=== PATIENT | male | born 1970 | race Caucasian/White ===

== ENCOUNTER 2019-04-12 12:56 | Observation (INO) | payer SELFPAY ==
[2019-04-12] VITALS (13 sets, daily range): BP systolic 125–161; BP diastolic 88–97; PULSE 63–126; RESP 15–20; TEMP 36.8–37.8; O2SAT 95–100; BMI 22.4
--- NOTE | 2019-04-12 13:28 | ED_ITS ---
Documented by User: DAMASO Wallace 04/12/19 15:54 HPI - Abdominal Pain General: Chief Complaint: Abdominal Pain Stated Complaint: Flank pain, vomiting, dark urine Time Seen by Provider: 04/12/19 13:28 History of Present Illness: HPI narrative: Patient is a 48-year-old male who comes to the ED with left flank pain, nausea and vomiting. Patient states that the left flank pain started about 3 days ago. Around that time patient also noticed that his urine got dark in tea colored. He says that the dark tea color urine has resolved in the past couple days but he still has left flank pain. He's had nausea past couple days and has not eaten much at all. Loss of appetite for the past 3 days. He vomited once this morning. He says he has a little bit of discomfort when he urinates. He also says he's had diarrhea for the past couple days. He has been able to drink fluids and keep them down. Associated Symptoms: Reports diarrhea, nausea and vomiting; Denies chills, constipation, dysuria, fever(s), hematochezia and hematuria Review of Systems Const: Denies: fever, chills or fatigue Eyes: Denies: change in vision or eye discomfort ENMT: Denies: throat pain, painful swallowing, ear pain, nasal discharge or nasal congestion Card: Denies: chest pain, palpitations, edema, swelling of feet/ankles, shortness of breath on exertion or shortness of breath when lying down Resp: Reports: shortness of breath (from pain) and non-productive cough; Denies: productive cough GI: Reports: nausea, vomiting and diarrhea; Denies: abdominal pain, constipation or blood in stool : Reports: flank pain; Denies: difficulty urinating, painful urination or blood in urine Musc: Denies: neck pain, back pain or extremity swelling Skin/Breast: Denies: rash or new lesion Neuro: Denies: headache, numbness in extremities or weakness in extremities PFS ED PFSH: Medical History Tibial plateau fracture, left Surgical History S/P ureteral stent placement Social History Smoking and tobacco status: current every day smoker Substance/Drug Use: current Substance/Drug use frequency: few times a week Substance/Drug use type: Marijuana Physical Exam Narrative: EXAM NARRATIVE: Patient is a 48-year-old male with no signs of acute distress or pain. Patient is also showing no signs of acute respiratory distress. Const: COMMON NORMALS: oriented x3 HENMT: COMMON NORMALS: normocephalic HEAD & SCALP: normocephalic MOUTH: oral and palatal mucosa normal THROAT: posterior oropharynx normal and uvula midline Neck/C-Spine: COMMON NORMALS: supple GENERAL: Yes normal visual inspection Resp: COMMON NORMALS: normal respiratory effort, no retractions, no use of accessory muscles and clear to auscultation bilaterally AUSCULTATION: clear to auscultation bilaterally Cardio: COMMON NORMALS: regular rate, regular rhythm, S1 normal heart sound, S2 normal heart sound, no gallops, no clicks, no murmurs and peripheral pulses 2+ throughout RATE: regular rate RHYTHM: regular rhythm HEART SOUNDS: S1 normal and S2 normal PERIPHERAL PULSES: pulses 2+ throughout GI: COMMON NORMALS: normal to inspection, nondistended, normoactive bowel sounds, soft to palpation and no masses PALPATION: Yes soft and Yes tender Details: other (Left flank) : COMMON NORMALS: Yes no CVA tenderness BLADDER/KIDNEY EXAM: Yes no CVA tenderness Back/Pelvis: COMMON NORMALS: no CVA tenderness Extremity: COMMON NORMALS: normal to inspection Neuro: COMMON NORMALS: oriented x3 GAIT: Yes normal gait Skin: GENERAL SKIN EXAM: dry skin Course ED course: I talked with Dr. Wilson about patient's case and the CT results showing acute appendicitis. Dr. Wilson will be calling Gen. Surgery and managing patient's admission. Vital Signs: Vital signs: Vital Signs Temperature 98.9 F 04/13/19 07:23 Pulse Rate 65 04/13/19 07:23 Respiratory Rate 18 04/13/19 07:23 Blood Pressure 145/76 04/13/19 07:23 Pulse Oximetry 94 04/13/19 07:23 MDM - Abdominal Pain Lab Data: Attestation: I reviewed the patient's lab results. Labs: Lab Results 04/12/19 04/12/19 04/12/19 Range/Units 13:30 14:13 14:13 WBC 8.3 (4.0-10.0) 10^3/ uL RBC 5.78 H (4.1-5.3) 10^6/u L Hgb 16.9 H (11.7-16.6) g/dL Hct 51.4 (42.0-52.0) % MCV 88.9 (80-94) fL MCH 29.2 (28.0-34.0) pg MCHC 32.9 (30.0-36.0) g/dL RDW 14.6 (12.1-15.1) % Plt Count 223 (130-400) 10^3/c mm MPV 10.1 (7.4-10.4) fL Neut % (Auto) 76.4 % Lymph % (Auto) 12.3 % [place] % (Auto) 10.5 % Eos % (Auto) 0.0 % Baso % (Auto) 0.4 % Neut # (Auto) 6.4 (1.8-7.7) 10^3/u L Lymph # (Auto) 1.0 (0.8-4.8) 10^3/u L [place] # (Auto) 0.9 (0.2-0.9) 10^3/u L Eos # (Auto) 0.0 (0.0-0.8) 10^3/u L Baso # (Auto) 0.0 (0.0-0.1) 10^3/u L Nucleated RBC % (a uto) 0 % Nucleated RBCs # 0.0 /100WBC Sodium 137 (136-145) mmol/L Potassium 4.5 (3.5-5.1) mmol/L Chloride 97 L (98-107) mmol/L Carbon Dioxide 26 (22-29) mmol/L Anion Gap 18.5 (5-19) BUN 27 H (6-20) mg/dL Creatinine 1.1 (0.7-1.2) mg/dL GFR Calculation 71.1 L (90-130) mL/min Glucose 102 (65-115) mg/dL Calcium 9.2 (8.5-10.5) mg/dL Total Bilirubin 0.2 (0.15-1.2) mg/dL AST 26 (0-40) U/L ALT 21 (0-41) U/L Alkaline Phosphata se 52 (40-130) IU/L Total Protein 7.7 (6.6-8.7) g/dL Albumin 4.2 (3.5-5.2) g/dL Globulin 3.5 (1.3-4.6) g/dL Urine Color Yellow (Yellow) Urine Appearance Hazy A (CLEAR) Urine pH 5 (5-7) Ur Specific Gravit y 1.025 (1.005-1.030) Urine Protein 1+ H (Negative) Urine Glucose (UA) Norm (Normal) Urine Ketones 1+ H (Negative) Urine Occult Blood 3+ H (Negative) Urine Nitrate Negative (Negative) Urine Bilirubin Neg (NEGATIVE) Urine Urobilinogen Norm (Negative) mg/dL Ur Leukocyte Maisha ase Negative (Negative) Urine RBC 25-40 H (0-2) /hpf Urine WBC 0-4 H (0-5) /hpf Ur Squamous Epith Cells Rare (0-5) Urine Bacteria 1+ H (NONE) Fine Granular Cast s 10-15 H /lpf Urine Mucus 1+ Imaging Data ^: CT Abd/Pel: Attestation: I personally reviewed and interpreted this imaging study as follows: Radiologist's impression: [place] [address] CT Scan Report Signed Patient: Beto Thakkar Unit #: [id number] : 1970 Age/Sex: 48 / M ADM Date: 04/12/19 Loc: ER Room/Bed: Attending Dr: Ordering Provider/Ordering MD: Saeed Austin Date of Service: 04/12/19 Procedure(s): CT abdomen pelvis w con* [id number] Accession Number(s): [id number] Report Number: [id number] PROCEDURE INFORMATION: Exam: CT Abdomen And Pelvis With Contrast Exam date and time: 04/12/2019 2:09 PM Age: 48 years old Clinical indication: Abdominal pain; Flank; Other: Bilateral; Additional info: Right flank pain and nausea TECHNIQUE: Imaging protocol: Computed tomography of the abdomen and pelvis with intravenous contrast. Total DLP: 528.66 mGy-cm Radiation optimization: All CT scans at this facility use at least one of these dose optimization techniques: automated exposure control; mA and/or kV adjustment per patient size (includes targeted exams where dose is matched to clinical indication); or iterative reconstruction. Contrast material: OMNIPAQUE 300; Contrast volume: 95 ml; Contrast route: IV; COMPARISON: No relevant prior studies available. FINDINGS: Liver: Normal. No mass. Gallbladder and bile ducts: Normal. No calcified stones. No ductal dilation. Pancreas: Normal. No ductal dilation. Spleen: Normal. No splenomegaly. Adrenals: Normal. No mass. Kidneys and ureters: There is calcification in the inferior left kidney. There is left hydro nephrosis of uncertain age. No obstructing ureteral mass or calcification. No hydronephrosis on the right. Stomach and bowel: Unremarkable. No obstruction. No mucosal thickening. Appendix: The appendix diameter is 0.7 cm. There is enhancement of the appendix wall. Intraperitoneal space: Unremarkable. No free air. No significant fluid collection. Vasculature: Unremarkable. No abdominal aortic aneurysm. Lymph nodes: Unremarkable. No enlarged lymph nodes. Bladder: Unremarkable as visualized. Reproductive: Unremarkable as visualized. Bones/joints: Unremarkable. No acute fracture. Soft tissues: Unremarkable. CT/CT abdomen pelvis w con* [id number] IMPRESSION: Findings are consistent with acute appendicitis. There is left hydronephrosis which may be old.Clinical correlation is advised. THIS REPORT CONTAINS FINDINGS THAT MAY BE CRITICAL TO PATIENT CARE. The findings were verbally communicated via telephone conference with Saeed Austin at 3:27 PM WELLNESS SPA MANAGER on 04/12/2019. The findings were acknowledged and understood. Radiation Dose CTDIVOL = (mGy): DLP = 528.66 (mGy-cm) Dictated By: Rona Mata MD Signed By: Rona Mata MD Signed Date/Time: 04/12/19 1529 DD/ 1528 Discharge Plan Discharge Patient Disposition: Admitted As Inpatient Admit Provider: Javon Olmstead Clinical Impression: Acute appendicitis Condition: Stable Discharge Orders: Discharge Order (Routine); Ordered 04/13/19 Ordered By: Javon Olmstead Referrals: Javon Olmstead MD [Physician] - (You will need to call Sunday and make an appointment to be seen in 7 to 10 days.) Geovani Philip MD [Physician] - (Call for the First available appointment, history of chronic hydronephrosis and ureteric stent associated with hematuria) Discharge Diet: Advance as tolerated Patient Instructions: Appendicitis (GEN), Laparoscopic Appendectomy (DC) Additional Instructions: 1. Patient can shower after 48 hours from surgery 2. Remove Dermabond 7 to 10 days after surgery 3. Up and walking as tolerated 4. Do lift more than 5 pounds first 2 weeks after surgery and not more than 25 pounds 6 to 8 weeks after surgery. 5. Do not operate heavy machinery or drive while using pain medications. 6.Contact the office or return to the ER for worsening nausea vomiting fevers or chills, or noticing any redness around incision sites or discharge. 6. Advised to return to ER or contact my office if there are any signs of infection like, increasing pain, fevers, chills, redness or drainage of pus. Discharge Date/Time: 04/12/19 16:38 Coding Level of Care Code ED Manufacturing Controller for Chg Fwd Exam Detailed Documented by User: Girma Wilson MD, [facility] 04/13/19 11:28 HPI - Abdominal Pain General: Chief Complaint: Abdominal Pain Stated Complaint: Flank pain, vomiting, dark urine Time Seen by Provider: 04/12/19 13:28 [facility] ED PFSH: Medical History Tibial plateau fracture, left Surgical History S/P ureteral stent placement Social History Smoking and tobacco status: current every day smoker Substance/Drug Use: current Substance/Drug use frequency: few times a week Substance/Drug use type: Marijuana Course Vital Signs: Vital signs: Vital Signs Temperature 98.9 F 04/13/19 07:23 Pulse Rate 65 04/13/19 07:23 Respiratory Rate 18 04/13/19 07:23 Blood Pressure 145/76 04/13/19 07:23 Pulse Oximetry 94 04/13/19 07:23 MDM - Abdominal Pain Lab Data: Labs: Lab Results 04/12/19 04/12/19 04/12/19 Range/Units 13:30 14:13 14:13 WBC 8.3 (4.0-10.0) 10^3/ uL RBC 5.78 H (4.1-5.3) 10^6/u L Hgb 16.9 H (11.7-16.6) g/dL Hct 51.4 (42.0-52.0) % MCV 88.9 (80-94) fL MCH 29.2 (28.0-34.0) pg MCHC 32.9 (30.0-36.0) g/dL RDW 14.6 (12.1-15.1) % Plt Count 223 (130-400) 10^3/c mm MPV 10.1 (7.4-10.4) fL Neut % (Auto) 76.4 % Lymph % (Auto) 12.3 % [place] % (Auto) 10.5 % Eos % (Auto) 0.0 % Baso % (Auto) 0.4 % Neut # (Auto) 6.4 (1.8-7.7) 10^3/u L Lymph # (Auto) 1.0 (0.8-4.8) 10^3/u L [place] # (Auto) 0.9 (0.2-0.9) 10^3/u L Eos # (Auto) 0.0 (0.0-0.8) 10^3/u L Baso # (Auto) 0.0 (0.0-0.1) 10^3/u L Nucleated RBC % (a uto) 0 % Nucleated RBCs # 0.0 /100WBC Sodium 137 (136-145) mmol/L Potassium 4.5 (3.5-5.1) mmol/L Chloride 97 L (98-107) mmol/L Carbon Dioxide 26 (22-29) mmol/L Anion Gap 18.5 (5-19) BUN 27 H (6-20) mg/dL Creatinine 1.1 (0.7-1.2) mg/dL GFR Calculation 71.1 L (90-130) mL/min Glucose 102 (65-115) mg/dL Calcium 9.2 (8.5-10.5) mg/dL Total Bilirubin 0.2 (0.15-1.2) mg/dL AST 26 (0-40) U/L ALT 21 (0-41) U/L Alkaline Phosphata se 52 (40-130) IU/L Total Protein 7.7 (6.6-8.7) g/dL Albumin 4.2 (3.5-5.2) g/dL Globulin 3.5 (1.3-4.6) g/dL Urine Color Yellow (Yellow) Urine Appearance Hazy A (CLEAR) Urine pH 5 (5-7) Ur Specific Gravit y 1.025 (1.005-1.030) Urine Protein 1+ H (Negative) Urine Glucose (UA) Norm (Normal) Urine Ketones 1+ H (Negative) Urine Occult Blood 3+ H (Negative) Urine Nitrate Negative (Negative) Urine Bilirubin Neg (NEGATIVE) Urine Urobilinogen Norm (Negative) mg/dL Ur Leukocyte Maisha ase Negative (Negative) Urine RBC 25-40 H (0-2) /hpf Urine WBC 0-4 H (0-5) /hpf Ur Squamous Epith Cells Rare (0-5) Urine Bacteria 1+ H (NONE) Fine Granular Cast s 10-15 H /lpf Urine Mucus 1+ Discharge Plan Discharge Patient Disposition: Admitted As Inpatient Admit Provider: Javon Olmstead Clinical Impression: Acute appendicitis Condition: Stable Discharge Orders: Discharge Order (Routine); Ordered 04/13/19 Ordered By: Javon Olmstead Referrals: Javon Olmstead MD [Physician] - (You will need to call Sunday and make an appointment to be seen in 7 to 10 days.) Geovani Philip MD [Physician] - (Call for the First available appointment, history of chronic hydronephrosis and ureteric stent associated with hematuria) Discharge Diet: Advance as tolerated Patient Instructions: Appendicitis (GEN), Laparoscopic Appendectomy (DC) Additional Instructions: 1. Patient can shower after 48 hours from surgery 2. Remove Dermabond 7 to 10 days after surgery 3. Up and walking as tolerated 4. Do lift more than 5 pounds first 2 weeks after surgery and not more than 25 pounds 6 to 8 weeks after surgery. 5. Do not operate heavy machinery or drive while using pain medications. 6.Contact the office or return to the ER for worsening nausea vomiting fevers or chills, or noticing any redness around incision sites or discharge. 6. Advised to return to ER or contact my office if there are any signs of infection like, increasing pain, fevers, chills, redness or drainage of pus. Discharge Date/Time: 04/12/19 16:38 Coding Level of Care Code ED Manufacturing Controller for Birgit Rodriges Exam Detailed
--- NOTE | 2019-04-12 13:55 | CTR_ITS ---
PROCEDURE INFORMATION: Exam: CT Abdomen And Pelvis With Contrast Exam date and time: 04/12/2019 2:09 PM Age: 48 years old Clinical indication: Abdominal pain; Flank; Other: Bilateral; Additional info: Right flank pain and nausea TECHNIQUE: Imaging protocol: Computed tomography of the abdomen and pelvis with intravenous contrast. Total DLP: 528.66 mGy-cm Radiation optimization: All CT scans at this facility use at least one of these dose optimization techniques: automated exposure control; mA and/or kV adjustment per patient size (includes targeted exams where dose is matched to clinical indication); or iterative reconstruction. Contrast material: OMNIPAQUE 300; Contrast volume: 95 ml; Contrast route: IV; COMPARISON: No relevant prior studies available. FINDINGS: Liver: Normal. No mass. Gallbladder and bile ducts: Normal. No calcified stones. No ductal dilation. Pancreas: Normal. No ductal dilation. Spleen: Normal. No splenomegaly. Adrenals: Normal. No mass. Kidneys and ureters: There is calcification in the inferior left kidney. There is left hydro nephrosis of uncertain age. No obstructing ureteral mass or calcification. No hydronephrosis on the right. Stomach and bowel: Unremarkable. No obstruction. No mucosal thickening. Appendix: The appendix diameter is 0.7 cm. There is enhancement of the appendix wall. Intraperitoneal space: Unremarkable. No free air. No significant fluid collection. Vasculature: Unremarkable. No abdominal aortic aneurysm. Lymph nodes: Unremarkable. No enlarged lymph nodes. Bladder: Unremarkable as visualized. Reproductive: Unremarkable as visualized. Bones/joints: Unremarkable. No acute fracture. Soft tissues: Unremarkable. CT/CT abdomen pelvis w con* [id number] IMPRESSION: Findings are consistent with acute appendicitis. There is left hydronephrosis which may be old.Clinical correlation is advised. THIS REPORT CONTAINS FINDINGS THAT MAY BE CRITICAL TO PATIENT CARE. The findings were verbally communicated via telephone conference with Saeed Austin at 3:27 PM BREAK OUT WORKER on 04/12/2019. The findings were acknowledged and understood. Radiation Dose CTDIVOL = (mGy): DLP = 528.66 (mGy-cm)
[2019-04-12 14:04] LABS: Add Urine Microscopic? YES; Bilirubin Urine Neg (NEGATIVE); Blood Urine 3+ (Negative); Glucose Urine UA Norm (Normal); Ketones Urine 1+ (Negative); Leukocyte Esterase Urine Negative (Negative); Nitrate Urine Negative (Negative); Protein Urine 1+ (Negative); Specific Gravity, Urine 1.025 (1.005-1.030); Urine Appearance Hazy (CLEAR); Urine Color Yellow (Yellow); Urobilinogen Urine Norm (Negative); pH Urine 5 (5-7)
[2019-04-12 14:08] LABS: Bacteria Urine 1+; Mucus Urine 1+; RBC Urine 25-40 /hpf (0-2); Squamous Epithelial Cell Urine RARE (0-5); WBC Urine 0-4 /hpf (0-5)
[2019-04-12 14:09] LABS: Add Urine Culture? Yes
[2019-04-12] MEDS: sodium chloride 0.9% 1,000 ML 999 ML IV (14:22)
[2019-04-12 14:30] LABS: Basophils % 0.4 %; Hematocrit 51.4 % (42.0-52.0); Hemoglobin 16.9 g/dL (11.7-16.6); Lymphocytes % 12.3 %; Mean Corpuscular HGB Conc 32.9 g/dL (30.0-36.0); Mean Corpuscular Hemoglobin 29.2 pg (28.0-34.0); Mean Corpuscular Volume 88.9 fL (80-94); Mean Platelet Volume 10.1 fL (7.4-10.4); Monocytes # 0.9 10^3/uL (0.2-0.9); Monocytes % 10.5 %; Neutrophils # 6.4 10^3/uL (1.8-7.7); Neutrophils % 76.4 %; Nucleated Red Blood Cells % 0 %; Platelet Count 223 10^3/cmm (130-400); Red Blood Count 5.78 10^6/uL (4.1-5.3); Red Cell Distribution Width 14.6 % (12.1-15.1); White Blood Count 8.3 10^3/uL (4.0-10.0)
[2019-04-12] MEDS: iohexol 300 mg/mL 100 mL Btl IV (14:32)
[2019-04-12 14:49] LABS: Alanine Aminotransferase 21 U/L (0-41); Albumin Level 4.2 g/dL (3.5-5.2); Alkaline Phosphatase 52 IU/L (40-130); Anion Gap 18.5 (5-19); Aspartate Amino Transferase 26 U/L (0-40); Blood Urea Nitrogen 27 mg/dL (6-20); Calcium 9.2 mg/dL (8.5-10.5); Carbon Dioxide 26 mmol/L (22-29); Chloride 97 mmol/L (98-107); Globulin 3.5 g/dL (1.3-4.6); Glomerular Filtration Rate 71.1 mL/min (90-130); Glucose 102 mg/dL (65-115); Potassium 4.5 mmol/L (3.5-5.1); Sodium 137 mmol/L (136-145); Total Bilirubin 0.2 mg/dL (0.15-1.2); Total Protein 7.7 g/dL (6.6-8.7)
--- NOTE | 2019-04-12 16:44 | ANES.PREANE2 ---
Pre-Anesthetic Assessment Pre-Anesthetic Assessment: Height/Weight: Height 1.83 m Weight 74.843 kg Temp Pulse Resp BP Pulse Ox 98.2 F 74 18 148/96 98 04/12/19 13:18 04/12/19 16:35 04/12/19 16:35 04/12/19 16:35 04/12/19 16:35 Preop Diagnosis: acute appendisitis Proposed Procedure: Operation Date: 04/12/19 17:50 Proposed Procedures p Appendectomy(Not Applicable) - Javon Olmstead MD Was Beta Harpreet taken within 24 hours: N/A Last intake: Intake Last Liquid Date 04/12/19 Last Liquid Time 12:00 Last Solid Date 04/09/19 Last Intake: 01:00 Social: Social History: Tobacco and No alcohol Exam: Pre-Anes Outpt Exam: alert, oriented x 3, clear to auscultation bilaterally and regular rate & rhythm Airway: Submandibular: WNL Cervical ROM: WNL MP: 1 Dentition: Other (very poor dentation) History/ROS: No significant history except as noted Pulmonary: Pulmonary: None reported CV/HEM: CV/HEM: None reported : : None reported Hepatic: Hepatic: None reported GI: GI: None reported Metabolic: Metabolic: None reported Musc/skel: Musc/skel: None reported Neuropsych: Neuropsych: None reported Anesthetic Plan: ASA status: 2E Anesthesia: Anesthesia Evaluation and General Risk of > 500 ml blood loss (7ml/kg in children): No PFSH Anesthesia PFSH: Social History Smoking and tobacco status: current every day smoker Data Anesthesia CBC & Chem 7: 04/12/19 14:13 04/12/19 14:13 Other Labs: Laboratory Results - last 48 hr 04/12/19 04/12/19 04/12/19 13:30 14:13 14:13 WBC 8.3 RBC 5.78 H Hgb 16.9 H Hct 51.4 MCV 88.9 MCH 29.2 MCHC 32.9 RDW 14.6 Plt Count 223 MPV 10.1 Neut % (Auto) 76.4 Lymph % (Auto) 12.3 [place] % (Auto) 10.5 Eos % (Auto) 0.0 Baso % (Auto) 0.4 Neut # (Auto) 6.4 Lymph # (Auto) 1.0 [place] # (Auto) 0.9 Eos # (Auto) 0.0 Baso # (Auto) 0.0 Nucleated RBC % (auto) 0 Nucleated RBCs # 0.0 Sodium 137 Potassium 4.5 Chloride 97 L Carbon Dioxide 26 Anion Gap 18.5 BUN 27 H Creatinine 1.1 GFR Calculation 71.1 L Glucose 102 Calcium 9.2 Total Bilirubin 0.2 AST 26 ALT 21 Alkaline Phosphatase 52 Total Protein 7.7 Albumin 4.2 Globulin 3.5 Urine Color Yellow Urine Appearance Hazy A Urine pH 5 Ur Specific [place] 1.025 Urine Protein 1+ H Urine Glucose (UA) Norm Urine Ketones 1+ H Urine Occult Blood 3+ H Urine Nitrate Negative Urine Bilirubin Neg Urine Urobilinogen Norm Ur Leukocyte Esterase Negative Urine RBC 25-40 H Urine WBC 0-4 H Ur Squamous Epith Cells Rare Urine Bacteria 1+ H Fine Granular Casts 10-15 H Urine Mucus 1+ Micro: Microbiology 04/12/19 14:23 Blood Culture - Preliminary Blood SPECIMEN COLLECTED 04/12/19 14:13 Blood Culture - Preliminary Blood SPECIMEN COLLECTED Cardiac Studies: No Data to Display
--- NOTE | 2019-04-12 17:31 | PM.HP ---
Providers/Chief Complaint Admitting Physician: Javon Olmstead MD Chief Complaint: flank pain x 3days History of Present Illness Chief Complaint: Abdominal pain History of present illness: Beto Thakkar is a 48 year old male presents to the emergency department with worsening left-sided abdominal pain and history of intermittent hematuria patient gives history of vomiting he said that the pain has been going on today on the left side and as it got worse came to the emergency department for further evaluation, denies any fever chills or change in bowel habits. CT scan of the abdomen and pelvis was obtained and showed acute appendicitis chronic hydronephrosis on the left side. General surgery was consulted for further evaluation and management Review of Systems Const: Denies: fever, chills, body aches or malaise Card: Denies: chest pain Resp: Denies: shortness of breath GI: Reports: abdominal pain and vomiting; Denies: nausea, difficulty swallowing, diarrhea, constipation or blood in stool : Reports: blood in urine Neuro: Denies: headache Psych: Denies: anxiety or depression Medications/Allergies Home Medications Medication Instructions Recorded Confirmed Last Taken Type aspirin [Aspir-81] 162 mg PO DAILY PRN 04/12/19 04/12/19 04/11/19 History Allergies Allergy/AdvReac Type Severity Reaction Status Date / Time No Known Allergies Allergy Verified 04/12/19 17:33 PFSH Acute PFSH: Medical History (Updated 04/12/19 @ 17:34 by Javon Olmstead MD) Tibial plateau fracture, left Surgical History (Updated 04/12/19 @ 17:34 by Javon Olmstead MD) S/P ureteral stent placement Social History (Updated 04/12/19 @ 17:34 by Javon Olmstead MD) Smoking and tobacco status: current every day smoker Substance/Drug Use: current Substance/Drug use frequency: few times a week Substance/Drug use type: Marijuana Vitals/I&O/Wt Last Vital Signs Temp 100.1 F H 04/12/19 16:40 Pulse 88 04/12/19 16:40 Resp 16 04/12/19 16:40 BP 161/92 04/12/19 16:40 Pulse Ox 97 04/12/19 16:40 Weight last 48 hrs Weight 165 lb Physical Exam Const: COMMON NORMALS: no apparent distress and oriented x3 GENERAL APPEARANCE: cooperative ORIENTATION/CONSCIOUSNESS: Yes awake, Yes oriented to person, Yes oriented to place and Yes oriented to time HENMT: COMMON NORMALS: normocephalic HEAD & SCALP: normocephalic Eye: COMMON NORMALS: PERRL and no scleral icterus PUPIL: Yes PERRL Lymph: LYMPHATIC: no lymphadenopathy noted Chest: COMMONS NORMALS: inspection of chest normal Resp: COMMON NORMALS: normal respiratory effort and clear to auscultation bilaterally AUSCULTATION: clear to auscultation bilaterally Cardio: COMMON NORMALS: S1 normal heart sound and S2 normal heart sound; negative for no murmurs HEART SOUNDS: S1 normal and S2 normal GI: COMMON NORMALS: soft to palpation; negative for no hepatosplenomegaly INSPECTION: Yes normal to inspection PALPATION: Yes soft, No firm, Yes tender (Maximal tenderness at McBurney's point) Details: RLQ, No guarding, No rigid and No no hepatosplenomegaly Data : 04/12/19 14:13 04/12/19 14:13 Micro: Microbiology 04/12/19 14:23 Blood Culture - Preliminary Blood SPECIMEN COLLECTED 04/12/19 14:13 Blood Culture - Preliminary Blood SPECIMEN COLLECTED A&P Assessment and plan (1) Acute appendicitis: After thorough history physical examination and reviewing the chart and images with my personal interpretion, I counseled the patient for laparoscopic appendectomy possible open. Indications, risks, benefits and alternatives were all discussed with the patient and did agree to proceed. Informed consent per chart Status: Acute Qualifiers: Acute appendicitis type: with localized peritonitis Appendicitis abscess presence: without abscess Appendicitis gangrene presence: without gangrene Appendicitis perforation presence: without perforation Qualified Code(s): K35.30 - Acute appendicitis with localized peritonitis, without perforation or gangrene Code(s): K35.80 - Unspecified acute appendicitis Attestations Medical Necessity Statement*: Observation Time Spent in Patient Care: less than 15 minutes (>than 50% of time spent in counselling and/or direct pt care on unit). Coding Level of Care Code Acute Business Mail Entry Clerk for [facility] Fwd Diagnoses Acute appendicitis K35.30 Acute appendicitis type: with localized peritonitis Appendicitis abscess presence: without abscess Appendicitis gangrene presence: without gangrene Appendicitis perforation presence: without perforation
[2019-04-12] MEDS: lidocaine 2% INJ 20 mL INJECTION (18:12)
--- NOTE | 2019-04-12 18:52 | PM.OP ---
Operative Report Date of procedure: April 12, 2019 Pre-op Diagnosis: acute appendisitis Post-op diagnosis: same Post-op Findings: Acute retrocecal appendicitis without perforation Procedure Done: Laparoscopic appendectomy Specimens removed/disposition: Appendix Surgeon: Javon Olmstead Sidehand: Surgical carlton Lundberg and Kathy Medical student [employer] Care[employer] Circulating nurses Chelsea and Afshan Anesthesia: General (MATERIAL CUTTER Janeth and Dr. Rodriguez) Estimated blood loss (mL): 10 Condition: stable Disposition: floor Brief History: This is a pleasant 48 years old gentleman presents with abdominal pain got worse, patient came to the ER and worked up and found to have appendicitis on the CT scan. After thorough history physical examination and reviewing the chart and images with my personal interpretion, I counseled the patient for laparoscopic appendectomy possible open. Indications, risks, benefits and alternatives were all discussed with the patient and did agree to proceed. Informed consent per chart Procedure: Patient after being identified in the holding area and asked to void urine, and informed consent per chart ,patient was then taken back to the OR placed in supine position got intubated by anesthesia left arm was tucked tucked ,Timeout was done verifying the patient's name/date of /planned procedure and destination after the procedure, all were in agreement., preoperative antibiotics administered per protocol. prep and drape of the abdomen was done under the usual sterile technique. Started by longitudinal skin incision supraumbilical using a Krishnamurthy trocar technique safe entry to the abdominal cavity was achieved verified by using 10 mm zero degree laparoscopy, switched to a 30? scope under direct visualization a suprapubic 5 mm trocar was inserted followed by another 5 mm trocar inserted in the left lower quadrant, I was able to position the patient in an T Reinoso and left side down, dissection of the retrocecal acutely inflamed appendix without evidence of perforation,bluntly, attention was deviated to the healthy base of the appendix where I had to switch the camera to 5 mm 30? scope got introduced through the left lower quadrant and through the Krishnamurthy trocar under direct visualization a GI stapler 45 mm blue load was applied at the healthy part of the base of the appendix, and an Endoloop PDS was applied onto the mesoappendix for control , the appendix was then retrieved in an Endo Catch bag, final survey was done of the abdomen and pelvis , irrigation with warm saline, and suction was obtained. There was minor oozing at the stump of the appendectomy were 5 mm clips were applied Final look laparoscopy was done showing no other abnormalities or injuries, all trocars were taken out under direct visualization and the trocar site supraumbilically was closed by 0 Vicryl sutures under direct vision using fascial closure device ,followed by skin closure using 4-0 Monocryl of all trocar site incisions. infiltration of local lidocaine 2% was done to all incision sites, followed by surgical glue. Count was completed at the end of the procedure for instruments , sponges and instruments Patient tolerated the procedure well and was transferred to the recovery area after extubation. I was present for the whole entire procedure
[2019-04-12] MEDS: HYDROcodone-acetaminophen 5-325 mg Tablet 1 TAB PO (21:04)
[2019-04-13 00:15] VITALS: BP 124/91; PULSE 89; RESP 18; TEMP 37.1; O2SAT 96
[2019-04-13 02:15] VITALS: BP 147/82; PULSE 87; RESP 18; TEMP 36.9; O2SAT 96
[2019-04-13 06:37] LABS: Anion Gap 17.4 (5-19); Blood Urea Nitrogen 21 mg/dL (6-20); Calcium 8.4 mg/dL (8.5-10.5); Carbon Dioxide 23 mmol/L (22-29); Chloride 101 mmol/L (98-107); Creatinine Clr Calc Pharmacy 107.4266; Glomerular Filtration Rate 89.7 mL/min (90-130); Glucose 110 mg/dL (65-115); Osmolality Calculated 281 mOsm/kg (285-295); Potassium 4.4 mmol/L (3.5-5.1); Sodium 137 mmol/L (136-145)
--- NOTE | 2019-04-13 07:01 | P.PN_ITS ---
Subjective Subjective: Interval history: Overall patient is doing well and passing gas,tolerating well p.o. intake No acute events overnight Pain seems to be under control No reported hematuria Vitals/I&O/Wt Last Vital Signs Temp 98.5 F 04/13/19 02:15 Pulse 87 04/13/19 02:15 Resp 18 04/13/19 02:15 BP 147/82 04/13/19 02:15 Pulse Ox 96 04/13/19 02:15 04/12/19 04/13/19 04/13/19 22:59 06:59 14:59 Intake Total 1290 / 1290 700 / 1990 Output Total 750 / 770 Balance 1270 / 1270 -50 / 1220 Weight last 48 hrs Weight 165 lb Physical Exam Const: COMMON NORMALS: no apparent distress and oriented x3 GENERAL APPEARANCE: cooperative ORIENTATION/CONSCIOUSNESS: Yes awake, Yes oriented to person, Yes oriented to place and Yes oriented to time Chest: COMMONS NORMALS: inspection of chest normal Resp: COMMON NORMALS: normal respiratory effort and clear to auscultation bilaterally AUSCULTATION: clear to auscultation bilaterally Cardio: COMMON NORMALS: S1 normal heart sound and S2 normal heart sound; negative for no murmurs HEART SOUNDS: S1 normal and S2 normal GI: COMMON NORMALS: soft to palpation; negative for no hepatosplenomegaly INSPECTION: Yes normal to inspection and Yes other (Incisions are clean dry and intact) PALPATION: Yes soft, No firm, No tender, No guarding, No rigid and No no hepatosplenomegaly Neuro: COMMON NORMALS: oriented x3 SENSORIUM/ORIENTATION: Yes oriented to person, Yes oriented to place and Yes oriented to time Data : 04/12/19 14:13 04/13/19 06:06 Micro: Microbiology 04/12/19 14:23 Blood Culture - Preliminary Blood SPECIMEN COLLECTED 04/12/19 14:13 Blood Culture - Preliminary Blood SPECIMEN COLLECTED A&P Assessment and plan (1) Acute appendicitis: We will plan to advance diet as tolerated We will discharge patient home today Did encourage the patient to have an appointment to see Dr. Philip as an outpatient Return to surgery office in 10 days Status: Resolved Qualifiers: Acute appendicitis type: with localized peritonitis Appendicitis abscess presence: without abscess Appendicitis gangrene presence: without gangrene Appendicitis perforation presence: without perforation Qualified Cod e(s): K35.30 - Acute appendicitis with localized peritonitis, without perforation or gangrene Code(s): K35.80 - Unspecified acute appendicitis Attestations Medical Necessity Statement*: Observation status Time Spent in Patient Care: 16 - 35 minutes (>than 50% of time spent in counselling and/or direct pt care on unit) . 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
--- NOTE | 2019-04-13 07:03 | PM.SDS ---
Short Stay Summary Providers Date of Admit/Discharge: 04/16/19 Attending Provider: Javon Olmstead MD Chief Complaint: flank pain x 3days HPI History of Present Illness Chief complaint Abdominal pain HPI Beto Thakkar is a 48 year old male with associated chronic hydronephrosis of the left kidney and previous ureteric stent with intermittent hematuria, patient presented to the ER with worsening abdominal pain on the left side and a CT scan of the abdomen and pelvis was obtained showed acute appendicitis, patient was counseled for laparoscopic appendectomy possible open and he did agree to proceed. Review of Systems General: Reports: 10 or more systems reviewed and unremarkable except in HPI and below Home Meds/Allergies Home Medications and Allergies Home Medications Medication Instructions Recorded Confirmed Type Aspir-81 162 mg PO DAILY PRN 04/12/19 04/12/19 History Allergies Allergy/AdvReac Type Severity Reaction Status Date / Time No Known Allergies Allergy Verified 04/16/19 17:03 PFSH Acute PFSH: Medical History Tibial plateau fracture, left Surgical History S/P ureteral stent placement Social History Smoking and tobacco status: current every day smoker Vitals/I&O/Wt Last Vital Signs Temp 98.5 F 04/13/19 02:15 Pulse 87 04/13/19 02:15 Resp 18 04/13/19 02:15 BP 147/82 04/13/19 02:15 Pulse Ox 96 04/13/19 02:15 04/12/19 04/13/19 04/13/19 22:59 06:59 14:59 Intake Total 1290 / 1290 700 / 1990 Output Total 750 / 770 Balance 1270 / 1270 -50 / 1220 Weight last 48 hrs Weight 165 lb Physical Exam Narrative: EXAM NARRATIVE: Patient is conscious alert oriented X3 BMI 22 Chest is clear bilateral Abdomen nontender nondistended soft no organomegaly guarding or rigidity/no signs of peritonitis Incisions are clean dry and intact Extremities no cyanosis no clubbing no edema Hospital Course Hospital Course: Overall patient is doing well, tolerating by mouth intake, stable vital signs, good urine output Patient is conscious alert oriented X3 BMI 22.4 Head and neck examination PERRLA no masses no cervical lymphadenopathy no jaundice Abdomen nontender except mildly at the incision site nondistended soft no organomegaly guarding or rigidity/no signs of peritonitis Extremities no cyanosis no clubbing no edema SSS Data Data Completed and Pending: Completed Studies During Hospitalization Category Date Time Status CT abdomen pelvis w con* [id number] Urge nt Cat Scan 04/12/19 13:55 Completed Pending at discharge Category Date Time Status ES surgery / GI i mages Routine Exams 04/12/19 17:35 Taken Blood Culture Sta t Lab 04/12/19 14:23 Results Urine Culture Sta t Lab 04/12/19 13:30 Received Pathology: Surgic al [PTH] Routine Pth 04/12/19 18:43 Ordered Diagnoses at Discharge Discharge Diagnosis (1) Acute appendicitis: Status: Resolved Problem details: Discharge home today Return to surgery office in 10 days Qualifiers: Acute appendicitis type: with localized peritonitis Appendicitis abscess presence: without abscess Appendicitis gangrene presence: without gangrene Appendicitis perforation presence: without perforation Qualified Code(s): K35.30 - Acute appendicitis with localized peritonitis, without perforation or gangrene (2) Hydronephrosis: Status: Acute Problem details: Encouraged the patient to schedule an appointment with urology service first available Discharge Plan Discharge Patient Disposition: Home, Self-Care Condition: Stable Prescriptions: [place] 5-325 mg tablet 1 tab PO Q6H PRN (Reason: pain) Qty: 28 RF: 0 Continued Aspir-81 81 mg Tablet,Delayed Release (Dr/Ec) 162 mg PO DAILY PRN (Reason: Headache) RF: 0 Discharge Orders: Discharge Order (Routine); Ordered 04/13/19 Ordered By: Javon Olmstead Referrals: Javon Olmstead MD [Physician] - (You will need to call Sunday and make an appointment to be seen in 7 to 10 days.) Geovani Philip MD [Physician] - (Call for the First available appointment, history of chronic hydronephrosis and ureteric stent associated with hematuria) Discharge Diet: Advance as tolerated Patient Instructions: Appendicitis (GEN), Laparoscopic Appendectomy (DC) Activity Restrictions/Additional Instructions: 1. Patient can shower after 48 hours from surgery 2. Remove Dermabond 7 to 10 days after surgery 3. Up and walking as tolerated 4. Do lift more than 5 pounds first 2 weeks after surgery and not more than 25 pounds 6 to 8 weeks after surgery. 5. Do not operate heavy machinery or drive while using pain medications. 6.Contact the office or return to the ER for worsening nausea vomiting fevers or chills, or noticing any redness around incision sites or discharge. 6. Advised to return to ER or contact my office if there are any signs of infection like, increasing pain, fevers, chills, redness or drainage of pus. Discharge Date/Time: 04/13/19 09:50 Attestations Medical Necessity Statement*: Observation status Time Spent in Patient Care*: less than 30 min Quality Metrics Clinical Quality Measures: During this hospital stay, did patient experience: None Coding Level of Care Code Acute [employer] Team Member for Birgit Rodriges Diagnoses Acute appendicitis K35.30 Acute appendicitis type: with localized peritonitis Appendicitis abscess presence: without abscess Appendicitis gangrene presence: without gangrene Appendicitis perforation presence: without perforation Hydronephrosis N13.30
[2019-04-13 07:23] VITALS: BP 145/76; PULSE 65; RESP 18; TEMP 37.2; O2SAT 94
[2019-04-13] MEDS: TRAMadol 50 mg Tablet PO (09:23)
--- NOTE | 2019-05-01 12:03 | PC.SOCIAL ---
Reviewed previous called Blood Culture results with Dr Olmstead. Provider indicates likely a contaminate since he did not indication to be sent home on abx and patient has since been seen in the clinic and is symptom free.
== END 2019-04-13 09:50 | disposition home or self-care (01) ==
LOC: ER 16:15 → OR 16:18 → MEDSURG 04-13 07:05
PROVIDERS: Admitting Provider Surgery; Emergency Provider Physician Assistant; Visit Provider Surgery
PROC: (CPT 44950; principal; 2019-04-12 17:30)
DX: K35.30 Acute appendicitis with localized peritonitis, without perforation or gangrene (principal); N13.30 Unspecified hydronephrosis; F17.210 Nicotine dependence, cigarettes, uncomplicated
CPT/HCPCS: 44970; 12345; 36415; 74177; 80048; 80053; 81001; 85025; 87040; 87086; 87205; 88304; 96361; 96374; 96375; 99283; 99285; A9270; G0378; J0131; J0330; J0690; J1100; J2001; J2405; J2704; J2710; J3010; J3490; J7030; Q9967

== ENCOUNTER → 2019-05-07 16:27 | Outpatient (BNVA) | payer SELFPAY | PROVIDERS: Visit Provider Urology | DX: N13.30 Unspecified hydronephrosis (principal); R33.8 Other retention of urine; R31.0 Gross hematuria; N20.0 Calculus of kidney; N13.39 Other hydronephrosis | CPT/HCPCS: 81001; 87086 ==

== ENCOUNTER → 2019-05-08 11:28 | Outpatient (BNVA) | payer SELFPAY | PROVIDERS: Visit Provider Urology | DX: R31.0 Gross hematuria (principal) | CPT/HCPCS: 88112 ==